=== PATIENT | female | born 1985 | race Caucasian/White ===

== ENCOUNTER 2024-08-27 14:35 | Emergency (ER) | payer MEDICAID, SELFPAY ==
--- OUTSIDE RECORDS SUMMARY | 2024-08-27 14:38 | XMS_ITS | Clinical Summary ---
Author Organization [facility] Address [address] [place] [address] Care Team Providers Care Orthodontist Assistant Name Role Phone None Reported, Pcp Primary Care Provider Unavail able Source Comments Patient records contain information from all sites at [facility]. For routine questions regarding patient records, call [phone] during business hours, M-F 8:00 AM - 5:00 PM Central Time. Record requests for emergency care only can be directed to [phone] at any time.[facility] Allergies No known active allergies Medications citalopram (CeleXA) 20 mg tablet Take 20 mg by mouth daily. Active Viorele, 28, 0.15-0.02 mgx21 /0.01 mg x 5 tablet Take 1 tablet by mouth daily. 2023 Active azithromycin (ZITHROMAX) 250 mg tabletIndicatio ns:Cough Subacute Take 2 tablets (500 mg) by mouth on day one then take 1 tablet (250 mg) by mouth on days 2 - 5. 6 tablet 03/15/2023 Active benzonatate (TESSALON) 200 mg capsuleIndicati ons:Cough Subacute Take 1 capsule (200 mg total) by mouth 3 (three) times a day as needed for cough. 20 capsule 03/15/2023 Active predniSONE (DELTASONE) 20 mg tabletIndicatio ns:Cough Subacute Take 2 tablets (40 mg total) by mouth daily. 10 tablet 03/15/2023 Active SUMAtriptan (IMITREX) 50 mg tablet Take 1 tablet (50 mg total) by mouth as needed for migraine. May repeat dose once in 2 hours if migraine is unresolved. Do not exceed 200 mg in 24 hours. 9 tablet 1 11/08/2023 Active Active Problems No known active problems Social History Tobacco Use Types Packs/Day Years Used Date Smoking Tobacco: Never Smokeless Tobacco: Never Tobacco Cessation:Counseling Given: Not Answered Alcohol Use Standard Drinks/Week Comments Yes 0 (1 standard drink = 0.6 oz pur e alcohol) Nutrition Answer Date Recorded Nutrition: EVOO Fat Source 13 02/25 Nutrition: Servings of Fruits/Vegetables per Day Not on file 02/26/2020 Dental Answer Date Recorded Dental: Regular Dentist Unknown 09/13/19 21 Comments Unknown Sex and Gender Information Value Date Recorded Sex Assigned at Not on file Legal Sex Female 11:10 AM CDT Gender Identity Not on file Sexual Orientation Not on file Last Filed Vital Signs Vital Sign Reading Time Taken Comments Blood Pressure 132/95 11/08/2023 8:24 AM CDT Pulse 59 11/08/2023 8:24 AM CDT Temperature 36 C (96.8 F) 11/08/2023 5:45 AM CDT Respiratory Rate 20 11/08/2023 7:45 AM CDT Oxygen Saturation 97% 11/08/2023 8:24 AM CDT Inhaled Oxygen Concentration - - Weight 67.4 kg (148 lb 11.2 oz) 11/08/2023 5:47 AM CDT Height 172.7 cm (5' 8) 02/29/2020 5:14 PM CDT Body Mass Index 22.61 02/29/2020 5:14 PM CDT Plan of Treatment Health Maintenance Due Date Last Done Comments HIV Screening 1984 Hepatitis C Screening 1984 Hepatitis B Vaccines (3 of 3 - 3-dose series) 08/02/1995 06/07/1995, 12/23/1994 Mammogram 10/01/2023 09/30/2022 COVID-19 Vaccine ( season) 2024 Influenza Vaccine (#1) 2024 04/01/2016 Depression Screening (Annual PHQ-2) 07/05/2024 Cervical/Vaginal Cancer Screening 09/27/2026 09/28/2023 Lipid (Cholesterol) Screening 10/14/2027 10/13/2022 DTaP,Tdap,and Td Vaccines (5 - Td or Tdap) 04/14/2029 04/14/2019, 10/03/2010, 05/28/2009, Additional history exists HPV Vaccines Aged Out No longer eligi ble based on patient's age to complete this topic IPV Vaccines Aged Out No longer eligi ble based on patient's age to complete this topic Pneumococcal vaccine (0-49 years) Aged Out No longer eligible based on patient's age to complete this topic Insurance [facility] Care Teams Orthodontist Assistant Relationship Specialty Start Date End Date None Reported, Pcp PCP - General Family Medicine 11/08/23
--- OUTSIDE RECORDS SUMMARY | 2024-08-27 14:38 | XMS_ITS | Clinical Summary ---
Author Organization [facility] Address [address] [place] [id number] Care Team Providers Care Extrusion Utility Worker Name Role Phone Pcp, No Primary Care Provider Unavailabl e Allergies No known active allergies Medications Viorele, 28, tablet Take 1 Tablet by mouth once daily. 2023 Active Active Problems No known active problems Immunizations Name Administration Dates Next Due DT (Age < 7 years) 10/19/1995 Hepatitis B (Peds) 06/07/1995,12/23/1994 Influenza, IIV4 04/01/2016 Tdap 04/14/2019,10/03/2010,05/28/2009 Social History Tobacco Use Types Packs/Day Years Used Date Smoking Tobacco: Never Smokeless Tobacco: Never Alcohol Use Standard Drinks/Week Comments Yes 0 (1 standard drink = 0.6 oz pur e alcohol) 4-6 weekly PHQ-2 Answer Date Recorded PHQ-2 TOTAL SCORE 2 01/25/2023 Comments No Sex and Gender Information Value Date Recorded Sex Assigned at Not on file Legal Sex Female 7:17 AM 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 Gender Identity Not on file Sexual Orientation Not on file Obstetrics History Para Term AB IAB SAB Ectopic Multiple Livin g Live Births 1 Date Outcome GA Total Labor Labor/2nd/3rd Weight Sex Type Anes PTL Debra A1 A5 Name Clin Last Filed Vital Signs Vital Sign Reading Time Taken Comments Blood Pressure 119/80 07/27/2023 8:01 AM [employer]DICTION 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 Pulse 81 07/27/2023 8:01 AM ADDICTION 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 Temperature 36.6 C (97.8 F) 06/25/2011 8:44 AM [employer]DICTION 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 Respiratory Rate 18 04/22/2007 4:51 PM CDT Oxygen Saturation 99% 07/27/2023 8:01 AM [employer]DICTION 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 Inhaled Oxygen Concentration - - Weight 71.2 kg (157 lb) 07/27/2023 8:01 AM ADDICTION 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 Height 172.8 cm (5' 8.03) 01/25/2023 1:42 PM CD T Body Mass Index 23.85 01/25/2023 1:42 PM CDT Plan of Treatment Health Maintenance Due Date Last Done Comments HIV for age 15-65 01/10/1999 Hepatitis C screening for ag e 18-79 01/10/2002 Pap test for age 21-65 01/10/2005 BMI (ht and wt on same day) for age 18+ 01/26/2024 01/25/2023 Depression screening for age 12+ 01/26/2024 01/25/2023 COVID-19 vaccine series ( season) 2024 Influenza for age 9-49 03/05/2024 04/01/2016 Tetanus booster 04/14/2029 04/14/2019, 10/03/2010, 05/28/2009 Tdap Completed 04/14/2019, 10/03/2010, 05/28/2009 Pneumococcal series for age 6-49 Aged Out No longer eligible b ased on patient's age to complete this topic Insurance [facility] Advance Directives * Full Code (Latest Code Status on File) Date Activated Date Inactivated Comments 02/21/2006 2:07 PM 02/23/2006 2:20 PM * Full Code Date Activated Date Inactivated Comments 02/21/2006 9:00 AM 02/21/2006 2:07 PM Care Teams Extrusion Utility Worker Relationship Specialty Start Date End Date Pcp, No . PCP - General 08/31/12
--- OUTSIDE RECORDS SUMMARY | 2024-08-27 14:38 | XMS_ITS | Data Portability ---
Author Organization [facility] [employer], [id number] Address [address] [place] [address] Assessment No assessment recorded. Plan of Treatment Reminders Order Date Submit Date Provider Last Modified By Organization Details Last Modified Time Details Appointments None recorded. Lab TSH, serum or plasma 2023 [facility], [address] , [address], [place], [address], 4 12:46:29 CMP, serum or plasma 2023 [facility], [address], [address], [place], [address], 4 12:46:28 CBC w/ diff 2023 [facility], [address], [address], [place], [address], 4 12:46:22 ferritin, serum or plasma 2023 [facility], [address], [address], [place], [address], 4 12:46:29 transferrin , serum 2023 [facility], [address], [address], [place], [address], 4 12:46:30 iron + total iron-bindin g capacity (TIBC), serum 2023 024 [facility], [address] [facility] [address], [address], [place], [address], 4 12:46:31 testosteron e, free + total, w/ shbg, serum [email or web address], [address], [address], [place], [address], 4 15:15:54 Pap test, slide(s), cervical 2023 024 [facility], [address], [address], [place], [address], 4 08:03:34 pap, LB 2019 [facility], [address] [place], [address], 1 11:31:22 HPV DNA, high-risk 2019 020 [facility], [address] [place], [address], 1 11:31:20 Referral None recorded. Procedures None recorded. Surgeries None recorded. Imaging None recorded. Medication Orders Viorele (28) 0.15 mg-0.02 mg (21)/0.01 mg (5) tablet 2023 024 [place] [facility], [address] [place], [place], [id number], 4 17:08:30 Viorele (28) 0.15 mg-0.02 mg (21)/0.01 mg (5) tablet 2022 023 [place] [facility], [address] [place], [id number], 3 16:57:01 citalopram 20 mg tablet 2022 023 [email or web address] 4 [facility], [address], [place], [id number], 4 16:44:21 Kariva (28) 0.15 mg-0.02 mg (21)/0.01 mg (5) tablet 2021 [facility], [address], [place], [id number], 2 11:01:33 citalopram 20 mg tablet 2021 022 [email or web address] 4 [facility] #[facility]59, [address], [place], [id number], 4 16:44:21 Kariva (28) 0.15 mg-0.02 mg (21)/0.01 mg (5) tablet 2019 020 [id number], [address] [place], [address], 1 08:21:48 citalopram 20 mg tablet 2019 020 [email or web address] 4 [id number], [address] [place], [address], 4 16:44:21 Patient TargetsNo targets recorded. Patient Instructions Encounter Date Encounter Id Patient Instructions Last Modified By Organization Details Last Modified Time 09/28/2023 [id number] - Encouraged breast self-awareness and monthly breast exams. - Calcium and vitamin D intake discussed. - Counseling on use of estrogen containing contraceptives provided, including the 07/999 risk of DVT or stroke. This risk may be higher in smokers. - Discussed appropriate breast cancer screening and mammogram intervals. - Recommended colonoscopy age 45. [email or web address] Not available 09/28/2023 17:40:41 06/12/2024 [id number] Discussed sympto ms of possible low blood sugars. Discussed frequent small meals/snacks and protein intake. [email or web address] Not available 06/13/2024 17:50:46 Reason for Referral None Reported. Results Created Date Observation Date Name Description Value Unit Range Abnormal Flag Note LastModifiedBy Organization Detail LastModifiedTime 07/02/20 20 07/02/2020 HPV DNA, high- risk HPV high risk type 16 Negati ve for HPV type 16. negati ve for HPV type 16. Not Available [facility] [address] [place], [address], 07/10/2020 11:31:20 07/02/20 20 07/02/2020 HPV DNA, high- risk HPV high risk type 18 Negati ve for HPV type 18. negati ve for HPV type 18. Not Available [facility] [address] [place], [address], 07/10/2020 11:31:20 07/02/20 20 07/02/2020 HPV DNA, high- risk HPV other high risk types Negati ve for other high risk HPV types. negati ve for other high risk HPV types. HPV other high risk types inclu de 31, 33, 35, 39, 45, 51, 52, 56, 58, 59, 66, and 68. Not Available [facility] [address] [place], [address], 07/10/2020 11:31:20 07/02/20 20 07/02/2020 pap, LB case report See note CASE REPOR T ----- ----- ----- ----- ----- ----- ----- ----- Pap Smear Case: [id number] Autho paul delacruz Provi livia: Queenie Paniagua MD Colle cted: 07/02 03:48 PM Order ing Locat ion: [facility] [place] Jamar daniels Recei opal: 07/03 09:10 AM [facility] First Scree n: Yane Oneill Speci men: Cervi frank Thin Prep with HPV Test Image r Scree florentin, Cervi x ===== ===== ===== ==== = INTER PRETA TION: = ===== ===== ===== ==== Negat sadaf for intra epith elial lesio n or shira nandarshan cells . Elect opal grady d by Yane Oneill on at 10:30 AM SPECI MEN ADEQU ACY ----- ----- ----- ----- ----- ----- ----- ----- Satis facto ry for evalu ation . Endoc erkiran al/tr ansfo rmati on zone compo nent absen t. CLINI FRANK INFOR MATIO N ----- ----- ----- ----- ----- ----- ----- ----- Regul ar LMP ----- ----- ----- ----- ----- ----- ----- ----- 06-18 PAP DISCL AIMER ----- ----- ----- ----- ----- ----- ----- ----- This speci men was scree skip by the ThinP rep Imagi ng Syste m prior to kathie barker w by a cytot echno logis t and/o r patho logis t. The Pap test is a scree florentin test and has an irred ucibl e false -nega tive rate. Routi ne perio dic testi ng and follo w-up of unexp abhi d clini frank signs and sympt oms are impor tant to minim ize the conse quenc e of false -nega tive Pap tests . Anya galindo et al. 2012 Updat ed Conse nsus Guide lines for the Manag ement of Abnor mal Cervi frank Canhu r Scree florentin Tests and Dangelo antoine Precu rsors . J Low Genit Tract Dis 2013; 17 (5): S2-S2 7 Not Available [facility] [address] [place], [address], 07/10/2020 11:31:22 10/14/19 23 10/13/2022 LIPID PANEL cholesterol 239 mg/dL <200 high Not Available [address], [place], [address], 10/13/2022 20:51:10 10/14/19 23 10/13/2022 LIPID PANEL triglyceride s 144 mg/dL <150 Not Available [address], [place], [address], 10/13/2022 20:51:10 10/14/19 23 10/13/2022 LIPID PANEL direct measure HDL 100 mg/dL >=50 Not Available [address], [place], [address], 10/13/2022 20:51:10 10/14/19 23 10/13/2022 LIPID PANEL LDL cholesterol calculated 110 mg/dL <=100 high Not Available [address], [place], [address], 10/13/2022 20:51:10 10/14/19 23 10/13/2022 LIPID PANEL non HDL cholesterol 139 mg/dL <130 high Aracely stero l Amanuel able: <200 mg/dL Trigl yceri angely Dorothy l: Less than 150 mg/dL Borde rline High: 150-1 99 mg/dL High: 200-4 99 mg/dL Very High: Great er than or equal to 500 mg/dL Direc t Measu re HDL Femal e: Great er than or equal to 50 mg/dL Male: Great er than or equal to 40 mg/dL LDL Aracely stero l Amanuel able: <100m g/dL Above Amanuel able: 100-1 29 mg/dL Borde rline High: 130-1 59 mg/dL High: 160-1 89 mg/dL Very High: >= 190 mg/dL Non HDL Aracely stero l Amanuel able: 130 mg/dL Above Amanuel able: 130-1 59 mg/dL Borde rline High: 160-1 89 mg/dL High: 190-2 19 mg/dL Very High: Great er than or equal to 220 mg/dL Not Available [address], [place], [address], 10/13/2022 20:51:10 10/14/19 23 10/13/2022 GLUCO SE SERUM OR PLASM A glucose 91 mg/dL 70-99 Not Available [address], [place], [address], 10/13/2022 20:51:11 10/14/19 23 10/13/2022 GLUCO SE SERUM OR PLASM A patient fasting > 8hrs? Yes Not Available [address], [place], [address], 10/13/2022 20:51:11 10/14/19 23 10/13/2022 TSH WITH REFLE X TO FREE T4 TSH 3.39 uIU/m L 0.30-4 .20 Not Available [address], [place], [address], 10/13/2022 20:51:12 10/14/19 23 10/13/2022 HEMOG LOBIN A1C hemoglobin A1C 5.4 % <5.7 Dorothy l <5.7% Predi abete s 5.7-6 .4% Diabe matthew 6.5% or highe r Note: Adopt ed from ADA conse nsus guide lines . Not Available [address], [place], [address], 10/13/2022 20:51:14 09/28/19 24 09/28/2023 HPV HIGH RISK TYPES DNA CERVI FRANK other HR HPV Negati ve negati ve Not Available [address], [place], [address], 10/04/2023 08:03:23 09/28/19 24 09/28/2023 HPV HIGH RISK TYPES DNA CERVI FRANK HPV16 DNA Negati ve negati ve Not Available [address], [place], [address], 10/04/2023 08:03:23 09/28/19 24 09/28/2023 HPV HIGH RISK TYPES DNA CERVI FRANK HPV18 DNA Negati ve negati ve Not Available [address], [place], [address], 10/04/2023 08:03:23 09/28/19 24 09/28/2023 HPV HIGH RISK TYPES DNA CERVI FRANK final diagnosis See note below This patie nt's sampl e is negat sadaf for HPV DNA. This test was devel oped and its perfo rmanc e alexandra cteri stics deter mined by the [facility] Diagn ostic s Labor atory . It has not been clear ed or appro opal by the FDA. The labor atory is regul ated under CLIA as quali fied to perfo rm high- compl exity testi ng. This test is used for clini frank purpo ses. It shoul d not be regar ded as inves tigat ional or for resea rch. METHO DOLOG Y: The Michelle Tacos 4800 syste m uses autom ated extra ction , simul taneo us ampli ficat ion of HPV (L1 regio n) and beta- globi n, follo wed by real time detec tion of fluor escen t label ed HPV and beta globi n using speci fic oligo nucle otide probe s. The test speci fical ly ident ifies types HPV 16 DNA and HPV 18 DNA while concu rrent ly detec ting the rest of the high risk types (31, 33, 35, 39, 45, 51, 52, 56, 58, 59, 66 or 68). COMME NTS: This test is not inten ded for use as a scree florentin devic e for woman under age 30 with dorothy l cervi frank cytol ogy. Resul chris cerda d be corre lated with cytol ogic and histo logic findi ngs. Close clini frank follo wup is recom suma d. 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 Pap tests are prima rily effec tive for the diagn osis/ preve ntion of squam ous cell carci noma, not adeno carci noma or other cance rs. 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 ADEQU ACY: Satis facto ry for evalu ation , endoc ervic al/tr ansfo rmati on zone compo nent absen t Path repor t.rel evant Hx Spec: none BKR LAB AP LMP: 09-13 BKR LAB AP HPV REFLE X: Yes regar dless of resul t BKR LAB AP PREVI OUS ABNOR MAL: Yes BKR LAB AP PREVI OUS ABNL DX: 07-02 Neg/N eg HPV-n o ECC Path repor [email or web address] ments Imp Spec: The techn ical compo nent of this testi ng was compl eted at [facility] [facility] Not Available [address], [place], [address], 10/04/2023 08:03:34 06/12/20 24 06/12/2024 CBC WITH PLATE LETS WBC count 7.5 10e3/ uL 4.0-11 .0 Not Available [address], [place], [address], 06/16/2024 12:46:21 06/12/20 24 06/12/2024 CBC WITH PLATE LETS RBC count 5.02 10e6/ uL 3.80-5 .20 Not Available [address], [place], [address], 06/16/2024 12:46:21 06/12/20 24 06/12/2024 CBC WITH PLATE LETS hemoglobin 13.7 g/dL 11.7-1 5.7 Not Available [address], [place], [address], 06/16/2024 12:46:21 06/12/20 24 06/12/2024 CBC WITH PLATE LETS hematocrit 43.7 % 35.0-4 7.0 Not Available [address], [place], [address], 06/16/2024 12:46:21 06/12/20 24 06/12/2024 CBC WITH PLATE LETS MCV 87 fL 78-100 Not Available [address], [place], [address], 06/16/2024 12:46:21 06/12/20 24 06/12/2024 CBC WITH PLATE LETS MCH 27.3 pg 26.5-3 3.0 Not Available [address], [place], [address], 06/16/2024 12:46:21 06/12/20 24 06/12/2024 CBC WITH PLATE LETS MCHC 31.4 g/dL 31.5-[address] [facility] [address], [place], [address], 06/16/2024 12:46:21 06/12/20 24 06/12/2024 CBC WITH PLATE LETS RDW 13.2 % 10.0-1 5.0 Not Available [address], [place], [address], 06/16/2024 12:46:21 06/12/20 24 06/12/2024 CBC WITH PLATE LETS platelet count 310 10e3/ uL 150-45 0 Not Available [address], [place], [address], 06/16/2024 12:46:21 06/12/20 24 06/12/2024 CBC WITH PLATE LETS % neutrophils 58 % Not Available [address], [place], [address], 06/16/2024 12:46:21 06/12/20 24 06/12/2024 CBC WITH PLATE LETS % lymphocytes 34 % Not Available [address], [place], [address], 06/16/2024 12:46:21 06/12/20 24 06/12/2024 CBC WITH PLATE LETS % monocytes 6 % Not Available [facility] [address] [facility] [address], [place], [address], 06/16/2024 12:46:21 06/12/20 24 06/12/2024 CBC WITH PLATE LETS % eosinophils 1 % Not Available [facility] [address] [facility] [address], [place], [address], 06/16/2024 12:46:21 12/09/20 24 06/12/2024 CBC WITH PLATE LETS % basophils 1 % Not Available [address], [place], [address], 06/16/2024 12:46:21 06/12/20 24 06/12/2024 CBC WITH PLATE LETS % immature granulocytes 0 % Not Available [address], [place], [address], 06/16/2024 12:46:21 06/12/20 24 06/12/2024 CBC WITH PLATE LETS NRBCs per 100 WBC 0 /100 <1 Not Available [address], [place], [address], 06/16/2024 12:46:21 06/12/20 24 06/12/2024 CBC WITH PLATE LETS absolute neutrophils 4.3 10e3/ uL 1.6-8. 3 Not Available [address], [place], [address], 06/16/2024 12:46:21 06/12/20 24 06/12/2024 CBC WITH PLATE LETS absolute lymphocytes 2.6 10e3/ uL 0.8-5. 3 Not Available [address], [place], [address], 06/16/2024 12:46:21 06/12/20 24 06/12/2024 CBC WITH PLATE LETS absolute monocytes 0.5 10e3/ uL 0.0-1. 3 Not Available [address], [place], [address], 06/16/2024 12:46:21 06/12/20 24 06/12/2024 CBC WITH PLATE LETS absolute eosinophils 0.1 10e3/ uL 0.0-0. 7 Not Available [address], [place], [address], 06/16/2024 12:46:21 06/12/20 24 06/12/2024 CBC WITH PLATE LETS absolute basophils 0.0 10e3/ uL 0.0-0. 2 Not Available [address], [place], [address], 06/16/2024 12:46:21 06/12/20 24 06/12/2024 CBC WITH PLATE LETS absolute immature granulocytes 0.0 10e3/ uL <=0.4 Not Available [address], [place], [address], 06/16/2024 12:46:21 06/12/20 24 06/12/2024 CBC WITH PLATE LETS absolute NRBCs 0.0 10e3/ uL Not Available [address], [place], [address], 06/16/2024 12:46:21 06/12/20 24 06/12/2024 TESTO STERO NE FREE AND TOTAL free testosterone calculated 0.08 NG/dL Adult Femal e Refer ence Range : 18-30 Years : 0.08- 0.74 ng/dL 31-40 Years : 0.13- 0.92 ng/dL 41-51 Years : 0.11- 0.58 ng/dL Postm enopa usal: 0.06- 0.38 ng/dL Not Available [address], [place], [address], 06/16/2024 12:46:23 06/12/20 24 06/12/2024 TESTO STERO NE FREE AND TOTAL testosterone total 21 NG/dL 8-60 This test was devel oped and its perfo rmanc e alexandra cteri stics deter mined by the [facility], Speci al Chemi stry Labor atory . It has not been clear ed or appro opal by the FDA. The labor atory is regul ated under CLIA as quali fied to perfo rm high- compl exity testi ng. This test is used for clini frank purpo ses. It shoul d not be regar ded as inves tigat ional or for resea [facility]. Not Available [address], [place], [address], 06/16/2024 12:46:23 06/12/20 24 06/12/2024 COMPR EHENS SADAF METAB OLIC PANEL sodium 140 mmol/ L 135-14 5 Not Available [address], [place], [address], 06/16/2024 12:46:28 06/12/20 24 06/12/2024 COMPR EHENS SADAF METAB OLIC PANEL potassium 4.5 mmol/ L 3.4-5. 3 Not Available [address], [place], [address], 06/16/2024 12:46:28 06/12/20 24 06/12/2024 COMPR EHENS SADAF METAB OLIC PANEL carbon dioxide (co2) 23 mmol/ L 22-29 Not Available [address], [place], [address], 06/16/2024 12:46:28 06/12/20 24 06/12/2024 COMPR EHENS SADAF METAB OLIC PANEL anion gap 13 mmol/ L 7-15 Not Available [address], [place], [address], 06/16/2024 12:46:28 06/12/20 24 06/12/2024 COMPR EHENS SADAF METAB OLIC PANEL urea nitrogen 10.2 mg/dL 6.0-20 .0 Not Available [address], [place], [address], 06/16/2024 12:46:28 06/12/20 24 06/12/2024 COMPR EHENS SADAF METAB OLIC PANEL creatinine 0.84 mg/dL 0.51-0 .95 Not Available [address], [place], [address], 06/16/2024 12:46:28 06/12/20 24 06/12/2024 COMPR EHENS SADAF METAB OLIC PANEL GFR estimate 90 mL/mi n/1.7 3m2 >60 eGFR calcu lated using 2020 CKD-E PI equat ion. Not Available [address], [place], [address], 06/16/2024 12:46:28 06/12/20 24 06/12/2024 COMPR EHENS SADAF METAB OLIC PANEL calcium 9.8 mg/dL 8.8-10 .4 Refer ence inter vals for this test were updat ed on [address] healt hy popul ation more accur ately . There may be diffe rence s in the lindsey ing of prior resul ts with simil ar value s perfo rmed with this metho d. Those prior resul ts can be inter prete d in the zora xt of the updat ed refer ence inter vals. Not Available [address], [place], [address], 06/16/2024 12:46:28 06/12/20 24 06/12/2024 COMPR EHENS SADAF METAB OLIC PANEL chloride 104 mmol/ L 98-107 Not Available [address], [place], [address], 06/16/2024 12:46:28 06/12/20 24 06/12/2024 COMPR EHENS SADAF METAB OLIC PANEL glucose 113 mg/dL 70-99 high Not Available [address], [place], [address], 06/16/2024 12:46:28 06/12/20 24 06/12/2024 COMPR EHENS SADAF METAB OLIC PANEL alkaline phosphatase 62 U/L 40-150 Not Available [address], [place], [address], 06/16/2024 12:46:28 06/12/20 24 06/12/2024 COMPR EHENS SADAF METAB OLIC PANEL AST 22 U/L 0-45 Not Available [address], [place], [address], 06/16/2024 12:46:28 06/12/20 24 06/12/2024 COMPR EHENS SADAF METAB OLIC PANEL ALT 17 U/L 0-50 Not Available [address], [place], [address], 06/16/2024 12:46:28 06/12/20 24 06/12/2024 COMPR EHENS SADAF METAB OLIC PANEL protein total 7.5 g/dL 6.4-8. 3 Not Available [address], [place], [address], 06/16/2024 12:46:28 06/12/20 24 06/12/2024 COMPR EHENS SADAF METAB OLIC PANEL albumin 4.3 g/dL 3.5-5. 2 Not Available [address], [place], [address], 06/16/2024 12:46:28 06/12/20 24 06/12/2024 COMPR EHENS SADAF METAB OLIC PANEL bilirubin total 0.3 mg/dL <=1.2 Not Available [address], [place], [address], 06/16/2024 12:46:28 06/12/20 24 06/12/2024 TOMY TIN ferritin 19 NG/mL 6-175 Not Available [address], [place], [address], 06/16/2024 12:46:29 06/12/20 24 06/12/2024 TSH WITH REFLE X TO FREE T4 TSH 1.83 uIU/m L 0.30-4 .20 Not Available [address], [place], [address], 06/16/2024 12:46:29 06/12/20 24 06/12/2024 TRANS TOMY N LEVEL transferrin 379.0 mg/dL 200.0- 360.0 high Not Available [address], [place], [address], 06/16/2024 12:46:30 06/12/20 24 06/12/2024 IRON AND IRON HEATHER NG CAPAC ITY iron 90 ug/dL 37-145 Not Available [address], [place], [address], 06/16/2024 12:46:30 06/12/20 24 06/12/2024 IRON AND IRON HEATHER NG CAPAC ITY iron binding capacity 448 ug/dL 240-43 0 high Not Available [address], [place], [address], 06/16/2024 12:46:30 06/12/20 24 06/12/2024 IRON AND IRON HEATHER NG CAPAC ITY iron saturation index 20 % 15-46 Not Available [address], [place], [address], 06/16/2024 12:46:30 06/12/20 24 06/12/2024 SEX HORMO NE HEATHER NG GLOBU KACIE sex hormone binding globulin 228 nmol/ L 30-135 high Not Available [address], [place], [address], 06/16/2024 12:46:35 09/30/19 23 09/29/2022 US, lisa scanlon , limit ed No observ ation record ed. [email or web address] [facility] [address] [facility], [place], [address], 09/30/2022 09:06:48 10/01/1909/29/2022 MAMMO , diagn ostic , tomos ynthe sis, bilat eral No observ ation record ed. [email or web address] [place] [address] [address], [place], [address], 09/30/2022 09:08:57 Result Notes None recorded. Problems No Known Problems Procedures Surgical History Date Name Laterality Status Provider Name and Address Organization Details Recorded Time 09/28/19 Date of Last Pap Smear completed Hannah Vale MA - [facility] [employer] 10/04/2023 13:24:49 09/30/19 23 Date of Last Mammogram completed Sam Perez MA - [facility] [employer] 09/30/2022 09:06:14 03/25/20 14 Insert intrauterine device completed Not Available [facility] 02/12/2020 01:05:24 Remove intrauterine device completed Not Available [facility] 02/12/2020 01:05:24 dilation and curettage completed Not Available [facility] 02/12/2020 01:05:24 Imaging Results Imaging Date Name Status LastModified by Organiz ation Details LastModified Time 09/29/2022 US, breast, unilateral, limited completed [email or web address] [place] [address] [address], [place], [address], 09/30/2022 09:06:48 09/29/2022 MAMMO, diagnostic, tomosynthesis, bilateral completed [address], [place], [address], 09/30/2022 09:08:57 Procedure Notes None recorded. Medical Equipment None Reported. Allergies No known drug allergies Medications Name Sig Start Date Stop Date Status Note LastModified by Organization Details LastModified Time azithromyci n 250 mg tablet 09/27 completed Not Available Not Available Not Available benzonatate 200 mg capsule 09/27 completed Not Available Not Available Not Available prednisone 20 mg tablet 09/27 completed Not Available Not Available Not Available citalopram 20 mg tablet TAKE 1 TABLET DAILY 09/27 completed Not Available Not Available Not Available oseltamivir 75 mg capsule TAKE 1 CAPSULE BY MOUTH TWICE DAILY FOR 5 DAYS 06/12 completed Not Available Not Available Not Available hydroxyzine HCl 25 mg tablet TAKE 1 TABLET (25 MG) BY MOUTH EVERY 6 HOURS IF NEEDED FOR ITCHING. 09/27 completed Not Available Not Available Not Available ondansetron 4 mg disintegrat ing tablet DISSOLVE 1 TABLET IN THE MOUTH EVERY 8 HOURS NEEDED FOR NAUSEA OR VOMITING FOR UP TO 10 DAYS 06/12 completed Not Available Not Available Not Available amoxicillin 875 mg-potassiu m clavulanate 125 mg tablet TAKE 1 TABLET BY MOUTH 2 (TWO) TIMES A DAY FOR 7 DAYS. 08/12 completed Not Available Not Available Not Available Viorele (28) 0.15 mg-0.02 mg (21)/0.01 mg (5) tablet TAKE ONE TABLET BY MOUTH EVERY DAY active Not Available Not Available No t Available ID NOW COVID-19 Test Kit DIRECTED 10/13 completed Not Available Not Available Not Available Vitals Date Recorded Body height Body mass index (BMI) Body weight Systolic blood pressure Diastolic blood pressure Provider Name and Address Organization Details Last Updated DateTime 08/12/2021 172.72 cm 25.1 kg/m2 79124.02 g 112 mm[Hg] 76 mm[Hg] Sean Esteves (TERMED) [facility] [employer] 2 10:39:38 Date Recorded Body weight Body mass index (BMI) Body height Systolic blood pressure Diastolic blood pressure Provider Name and Address Organization Details Last Updated DateTime 09/22/2022 16775.3 g 26 kg/m2 172.72 cm 115 mm[Hg] 70 mm[Hg] Kasandra Matos (TERMED) [facility] [employer] 3 16:23:25 Date Recorded Body weight Body mass index (BMI) Body height Systolic blood pressure Diastolic blood pressure Provider Name and Address Organization Details Last Updated DateTime 09/28/2023 64393.04 g 23.1 kg/m2 172.72 cm 120 mm[Hg] 77 mm[Hg] Toshia Beth [facility] [employer] 4 16:49:18 Date Recorded Body height Body mass index (BMI) Body weight Systolic blood pressure Diastolic blood pressure Provider Name and Address Organization Details Last Updated DateTime 06/12/2024 172.72 cm 23.5 kg/m2 35881.1 g 115 mm[Hg] 80 mm[Hg] Paresh Wright [facility] [employer] 4 10:18:52 Date Recorded Body weight Body mass index (BMI) Body height Systolic blood pressure Diastolic blood pressure Provider Name and Address Organization Details Last Updated DateTime 07/02/2020 68555.34 g 24.3 kg/m2 172.72 cm 110 mm[Hg] 75 mm[Hg] Josefina Serrano (TERMED) [facility] [employer] 0 14:55:27 Social History Question Answer Notes LastModified by Organizat ion Details LastModified Time Tobacco Smoking Status Never Smoker Valencia rosenberg [facility] [employer] 09/23/2020 08:20:50 What Is Your Level Of Alcohol Consumption? None Former *Qty: 2dr/wk Information not available 09/23/2020 What Is Your Level Of Caffeine Consumption? Moderate 1-2c/day Information not available 09/22/2022 Which Illicit Or Recreational Drugs Have You Used? 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 Occasional Minimal Amount of Exercise (Once weekly or less) Information not available 02/12/2020 Mental Status None recorded. Family History Relationship Description Onset Age of this Age Resolved Age Notes LastModified by Organization Details LastModified Time Maternal Grandmother Hyperlipidem ia High Choles terol / Hyperl ipidem ia Not available 02/12/2020 01:06:29 Maternal Grandmother Family history of diabetes mellitus Diabet es Not available 02/12/2020 01:06:29 Maternal Grandmother Benign neoplasm of colon Colon Polyp, Benign Not available 02/12/2020 01:06:29 Maternal Grandmother Family history of breast cancer Cancer Breast Not available 02/12/2020 01:06:29 Medical History Condition Response Psych- Anxiety Disorder Y Gynecological History Statement/Question Response History of Abnormal PAP Y Date of Last Pap Smear 09/28/2023 Date of Last Mammogram 09/29/2022 Date of LMP 09/14/2023 Obstetrics History GPAL:G 7 P 3 0 3 3 Type Value Multiple Births 0 Full Term 3 Induced 0 Spontaneous 3 Premature 0 Living 3 Ectopics 0 Total 7 Immunizations Vaccine Type Date Status Note Provider Nam e and Address Organization Details Recorded Time unknown 03/14/2010 completed Kasandra Matos (TERMED) [place], [place] [facility] [employer] 09/22/2022 16:21:15 DT (pediatric) 10/19/1995 completed Kasandra Matos (TERMED[place], [place] [facility] [employer] 09/22/2022 16:21:15 Tdap 04/14/2019 completed Kasandra Matos (TERMED[place] [facility] [employer] 09/22/2022 16:21:15 Hep B, adolescent or pediatric 12/23/1994 completed Kasandra Matos (TERMED[place], [place] [facility] [employer] 09/22/2022 16:21:15 Hep B, adolescent or pediatric 06/07/1995 completed Kasandra Matos (TERMED[place], [place] [facility] [employer] 09/22/2022 16:21:15 Influenza, split virus, quadrivalent, PF 04/01/2016 completed Kasandra Matos (TERMED[place], [place] [facility] [employer] 09/22/2022 16:21:15 Past Encounters Encounter ID Performer Location Encounter Start Date Encounter Closed Date Diagnosis/Indication Diagnosis SNOMED-CT Code Diagnosis ICD10 Code Diagnosis Note [id number] CHANI HALL MD [id number] [facility]_[address] [place] ,[address] [place] [address] 07/02/2020 14:45:09 07/02/2020 15:52:48 Gynecologic examination 65029407 Z01.419 - Encouraged breast self-aware ness and monthly breast exams. - Calcium and vitamin D intake discussed. - Patient will return to clinic for fasting labs. - Counseling on use of estrogen containing contracept jeri provided, including the 07/999 risk of DVT or stroke. This risk may be higher in smokers. - Discussed appropriat e breast cancer screening and mammogram intervals. - Mood symptoms discussed- resources offered and phone numbers given to patient for counseling services/p chance chan, precaution s regarding depressed mood also discussed and patient is aware of emergency resources. Anxiety 64617682 F41.9 - Discussed increasing dose of citalopram to 30 mg. Pt agrees. Call if side effects or ineffectiv e dosage increase. [id number] CHANI HALL MD [id number] ,[place] [address] [place] [address] 08/12/2021 10:18:40 08/12/2021 11:09:22 Gynecologic examination 88081744 Z01.419 - Encouraged breast self-aware ness and monthly breast exams. - Calcium and vitamin D intake discussed. - Patient will return to clinic for fasting labs. - Counseling on use of estrogen containing contracept jeri provided, including the 07/999 risk of DVT or stroke. This risk may be higher in smokers. - Discussed appropriat e breast cancer screening and mammogram intervals. - Mood symptoms discussed- resources offered and phone numbers given to patient for counseling services/p chance chan, precaution s regarding depressed mood also discussed and patient is aware of emergency resources. - Declines flu shot. - Call if LLQ pain persists x 1-2 more weeks, would recommend US if that were the case. Anxiety 39823412 F41.9 - Recommend patient transition mental health care to psychiatry due to inadequate reponse to SSRI- Handout provided for therapists and psychiatri st - options given.- Continue citalopram 20 mg for now. [id number] CHANI HALL MD [id number] ,[facility] [address] [place] [id number] 09/22/2022 16:03:33 09/22/2022 17:13:20 Pain of left breast 7484152869 N64.4 - Ordered bilateral dx mammogram- Reassured normal exam Gynecologi c examination 96043707 Z01.419 - Encouraged breast self-aware ness and monthly breast exams. - Calcium and vitamin D intake discussed. - Patient will return to clinic for fasting screening labs (glucose, hemoglobin a1c, lipids, TSH reflex free T4). - Counseling on use of estrogen containing contracept jeri provided, including the 07/999 risk of DVT or stroke. This risk may be higher in smokers. - Discussed appropriat e breast cancer screening and mammogram intervals Anxiety 36367295 F41.9 - Continue citalopram 20 mg [id number] VALENTINA GOMEZ MD [id number] ,[address] [place] [address] 09/28/2023 16:34:08 09/28/2023 17:55:59 Gynecologic examination 95849391 Z01.419 Contracept ion care management 791776114 Z30.9 Discussed OCPs - this is working well for her and she would like to continue. [id number] VALENTINA GOMEZ MD [id number] ,[address] [place] [address] 06/12/2024 10:04:40 06/14/2024 09:34:16 Loss of hair 006224862 L65.9 Discussed hair loss and possible causes. Will do labs below. If normal, would recommend seeing derm. Acne 94219146 L70.9 Discussed increased acne. Already on OCPs. Will check testostero ne. Would also consider derm if normal. Contracept ion care management 824175508 Z30.9 Currently on OCPs and this is working fine but wondering about other options. Discussed options for control. Reviewed OCPs, nuvaring, patch, IUDs, nexplanon and depo-prove ra. Discussed bilateral salpingect steffanie and vasectomy. Discussed risks, benefits and what to expect with each. She will consider and continue OCPs for now. Left lower quadrant pain 286017460 R10.32 Discussed intermitte nt LLQ with h/o normal US in past and now seeming to be related to bowels. Recommend consult with [place] [facility]. Health Concerns Section Related Observation LastModified by Organization Detai ls LastModified Time None Recorded Concern Status LastModified by Organization Details LastModified Time None Recorded Advance Directives Directive None Recorded Payers Encounter Date Sequence Insurance Name Policy Number Policy Goode Covered Member ID Goode Member ID Guarantor Name 07/02/2020 1 [employer] - DOS PRIOR TO 2021 (MEDICAID REPLACEMENT - HMO) MEMTMA Madison R Ryane Alaina [id number] Madison R Alaina 08/12/2021 1 [employer] - DOS PRIOR TO 2023 (MEDICAID REPLACEMENT - HMO) [id number] Madison R Alaina [id number] Madison R Alaina 09/22/2022 1 [employer] - DOS PRIOR TO 2023 (MEDICAID REPLACEMENT - HMO) [id number] Madison R Alaina [id number] Madison R Alaina 09/28/2023 1 [employer] - [employer] - DOS ON OR AFTER 2023 (MEDICAID REPLACEMENT - HMO) [id number] Madison R Alaina [id number] Madison R Alaina 06/12/2024 1 [employer] - [employer] - DOS ON OR AFTER 2023 (MEDICAID REPLACEMENT - HMO) [id number] Madison R Alaina [id number] Madison R Alaina Notes Date Note Type Note Provider Name and Address Organization Details Recorded Time 07/02/2020 text/html Annual [facility])Reported bypatient.Patient Relationship To Practice:established patient Current Medical History:active medical problems stable Relevant Family History:no family history of breast cancer; no family history of ovarian cancer; no family history of uterine cancer; no family history of colon cancer; no family history of blood clots/DVT Menstrual History:Frequency of Menses: monthly; Duration of Flow: 4 days Contraceptive Method:Current Method Used: oral contraceptives; satisfied Sexually Active:Yes: same partner STI Screen:declines Health/Prevention:Ex ercise: yes; Multivitamins: no; Tobacco Use: no Mammogram:not applicable Pap Smear +/- HPV Cotesting:due Patient has:Primary Care Physician: no Past 6 months increased anxiety and hard time shutting it off to get to sleep. Takes her an hour to fall asleep, then wakes 2 am and it starts all over x an hour. Up at 6 am. On citalopram 20 mg x4 years. Takes in the evening as it has helped her fall asleep in the past, but not working as well anymore. Home automatic buffer w kids[place] [id number] [facility],[address], [place], [address], [place] [facility] [employer] 07/02/2020 16:13:29 08/12/2021 text/html Annual [facility] ([facility])Reported bypatient.Patient Relationship To Practice:established patient Current Medical History:active medical problems stable Relevant Family History:no family history of breast cancer; no family history of ovarian cancer; no family history of uterine cancer; no family history of colon cancer; no family history of blood clots/DVT Menstrual History:Frequency of Menses: monthly; Duration of Flow: 4 days Contraceptive Method:satisfied: oral contraceptives Sexually Active:Yes: spouse STI Screen:declines Health/Prevention:Ex ercise: yes; Multivitamins: no; Tobacco Use: no Mammogram:not applicable Pap Smear +/- HPV Cotesting:due Patient has:Primary Care Physician: no Increase in citalopram to 30 mg made her more sleepy but didn't help her sleep better at night. Now back on citalopram 20 mg and able to fall asleep but waking at 2 am and mind wanders and worries. Up for 3 hours and then falls back asleep for an hour and then exhausted. 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 Does that with her littlest. More responsibility due to staff being gone temporarily. Kids are 15 (hockey), 12 (BB), 10 yo [place](needing mental health support at [facility]); youngest horse riding. Past 6 months increased anxiety and hard time shutting it off to get to sleep. Takes her an hour to fall asleep, then wakes 2 am and it starts all over x an hour. Up at 6 am. On citalopram 20 mg x4 years. Takes in the evening as it has helped her fall asleep in the past, but not working as well anymore. Home automatic buffer w kids.Pt has had an ovarian cyst in the past. Currently feeling a dull pain. About 1.5 weeks ago had lapse in restarting pill and then excruciating pain on left side / sharp and through back to front. [place] [id number], [place], [address], [place] [facility] [employer] 08/12/2021 12:34:53 09/22/2022 text/html Annual [facility] ([facility])Reported bypatient.Patient Relationship To Practice:established patient Current Medical History:active medical problems stable Relevant Family History:no family history of breast cancer; no family history of ovarian cancer; no family history of uterine cancer; no family history of colon cancer; no family history of blood clots/DVT Menstrual History:Frequency of Menses: monthly; Duration of Flow: 4 days Contraceptive Method:satisfied: oral contraceptives Sexually Active:Yes: spouse STI Screen:declines Health/Prevention:Ex ercise: yes; Multivitamins: no; Tobacco Use: no Pap Smear +/- HPV Cotesting:up-to-date Patient has:Primary Care Physician: no Prior to last period (approx 6 weeks ago) noticed left breast pain at nipple extending laterally. Sharp, daily. Didn't improve at all with her period. Breast tissue might feel different but unclear if a lump? No nipple discharge. Citalopram 20 mg working well. OCPs working well. Riding horses regularly. Kids are 16 (hockey), 13 (BB), 11 yo [place](needing mental health support at [facility]); [place] [id number], [place], [address], [place] [facility] [employer] 09/22/2022 17:01:00 09/28/2023 text/html Annual [facility] us[facility] ([facility])Reported bypatient.Patient Relationship To Practice:established patient Current Medical History:no active medical problems Relevant Family History:no family history of breast cancer; no family history of ovarian cancer; no family history of uterine cancer; no family history of colon cancer; no family history of blood clots/DVT Menstrual History:Frequency of Menses: monthly; Duration of Flow: 4 days Contraceptive Method:satisfied: oral contraceptives Sexually Active:Yes: spouse Health/Prevention:Ex ercise: yes; Multivitamins: yes; Adequate Calcium Intake: yes; Tobacco Use: no Pap Smear +/- HPV Cotesting:due Thyroid/Lipid Screening:up-to-date Colonoscopy:not applicable Patient has:Primary Care Physician: [place] [id number] [facility],[address], [place], [address], [facility] [employer] 09/28/2023 17:41:03 06/12/2024 text/html Patient presents today with multiple concerns. 1. She reports losing hair for the last 6 months, worse in the last 3 months.2. She is getting more cystic acne around her mouth.3. She reports her grandmother has diabetes. She has always had times when it feels like her BS drops - she feels hot, has nausea and does not feel good. Eating something or drinking milk will make the symptoms better. This has been happening more often lately.4. She reports h/o pain on left lower quadrant years ago, intermittent. Had U/S which was normal in 2018 for this. This has also been worse in the last 6 months, but now she feels it is related to what she eats, as it is worse with different foods.5. She would like to discuss control options - considering [place] [id number] [facility],[address], [place], [address], [employer] 06/13/2024 17:51:08 OBGyn Episode Ob Episode Information Episode Created Date Number of Fetuses Patient Bloodtype Patient rh Status Prepregnancy Weight lbs Domestic Partner Domestic Partner Phone Father Name Applications Engineering Manager Status 07/02/20 20 1 CLOSED Fetus Data First Name Last Name Admitted to NICU Weight (g) Sex Living Outcome Pediatric Complications Fetus ID Race Codes Race Delivery Type , Spontane ous [id number] Meño Calculation Initial Meño Date Initial Exam Date Initial Exam Provider Initial Ultrasound Date Last Menstrual Period Date Ultra Sound Weeks Gestation 0 Eighteen To Twenty Week Meño Update Ultra Sound Date Fundal Height At Umbil Quickening Date Ultra Sound Latest Weeks Gestation Final Meño Confirmed By Final Meño Confirmed Date Final Meño Date Ultra Sound Latest Days Gestation 0 0 Menstrual History Last Menstrual Date Menses Monthly On Bcp Conception Prior Menses Frequency Hcg Plus Date Menarche Onset Age Delivery Information Delivery Date Delivery Type Labor Anesthesia Weeks Gestation Incision Type Labor Labor Length Hrs Delivered By Post Complications Tubal Sterilization Discharge Date Comments 7 9 suction D&C Discharge Information Feeding Method Contraceptive Method Maternal HG B and HCT Levels Ob Episode Information Episode Created Date Number of Fetuses Patient Bloodtype Patient rh Status Prepregnancy Weight lbs Domestic Partner Domestic Partner Phone Father Name Applications Engineering Manager Status 07/02/20 20 1 CLOSED Fetus Data First Name Last Name Admitted to NICU Weight (g) Sex Living Outcome Pediatric Complications Fetus ID Race Codes Race Delivery Type 3401.94 M Full Term [id number] Meño Calculation Initial Meño Date Initial Exam Date Initial Exam Provider Initial Ultrasound Date Last Menstrual Period Date Ultra Sound Weeks Gestation 0 Eighteen To Twenty Week Meño Update Ultra Sound Date Fundal Height At Umbil Quickening Date Ultra Sound Latest Weeks Gestation Final Meño Confirmed By Final Meño Confirmed Date Final Meño Date Ultra Sound Latest Days Gestation 0 0 Menstrual History Last Menstrual Date Menses Monthly On Bcp Conception Prior Menses Frequency Hcg Plus Date Menarche Onset Age Delivery Information Delivery Date Delivery Type Labor Anesthesia Weeks Gestation Incision Type Labor Labor Length Hrs Delivered By Post Complications Tubal Sterilization Discharge Date Comments 6 Regional-Ep idural 39 [place] Discharge Information Feeding Method Contraceptive Method Maternal HG B and HCT Levels Ob Episode Information Episode Created Date Number of Fetuses Patient Bloodtype Patient rh Status Prepregnancy Weight lbs Domestic Partner Domestic Partner Phone Father Name Applications Engineering Manager Status 07/02/20 20 1 CLOSED Fetus Data First Name Last Name Admitted to NICU Weight (g) Sex Living Outcome Pediatric Complications Fetus ID Race Codes Race Delivery Type 2296.08 2704 M Full Term 36056 Meño Calculation Initial Meño Date Initial Exam Date Initial Exam Provider Initial Ultrasound Date Last Menstrual Period Date Ultra Sound Weeks Gestation 0 Eighteen To Twenty Week Meño Update Ultra Sound Date Fundal Height At Umbil Quickening Date Ultra Sound Latest Weeks Gestation Final Meño Confirmed By Final Meño Confirmed Date Final Meño Date Ultra Sound Latest Days Gestation 0 0 Menstrual History Last Menstrual Date Menses Monthly On Bcp Conception Prior Menses Frequency Hcg Plus Date Menarche Onset Age Delivery Information Delivery Date Delivery Type Labor Anesthesia Weeks Gestation Incision Type Labor Labor Length Hrs Delivered By Post Complications Tubal Sterilization Discharge Date Comments 1 Regional-Ep idural 38 IOL for asymmetri c IUGR, Dr. Atkinson Discharge Information Feeding Method Contraceptive Method Maternal HG B and HCT Levels Ob Episode Information Episode Created Date Number of Fetuses Patient Bloodtype Patient rh Status Prepregnancy Weight lbs Domestic Partner Domestic Partner Phone Father Name Applications Engineering Manager Status 07/02/20 20 1 CLOSED Fetus Data First Name Last Name Admitted to NICU Weight (g) Sex Living Outcome Pediatric Complications Fetus ID Race Codes Race Delivery Type 3203.26 6704 M Full Term [id number] Meño Calculation Initial Meño Date Initial Exam Date Initial Exam Provider Initial Ultrasound Date Last Menstrual Period Date Ultra Sound Weeks Gestation 0 Eighteen To Twenty Week Meño Update Ultra Sound Date Fundal Height At Umbil Quickening Date Ultra Sound Latest Weeks Gestation Final Meño Confirmed By Final Meño Confirmed Date Final Meño Date Ultra Sound Latest Days Gestation 0 0 Menstrual History Last Menstrual Date Menses Monthly On Bcp Conception Prior Menses Frequency Hcg Plus Date Menarche Onset Age Delivery Information Delivery Date Delivery Type Labor Anesthesia Weeks Gestation Incision Type Labor Labor Length Hrs Delivered By Post Complications Tubal Sterilization Discharge Date Comments 9 Regional-Ep idural [address] Dr[address] Grupo Oswald delivered Discharge Information Feeding Method Contraceptive Method Maternal HG B and HCT Levels
[2024-08-27 14:49] VITALS: BP 125/86; PULSE 74; RESP 20; TEMP 36.8; O2SAT 99; BMI 23.9
--- NOTE | 2024-08-27 14:52 | CRLHL7_ITS ---
For Patients: As a result of the Cures Act, medical imaging exams and procedure reports are released immediately into your electronic medical record. You may view this report before your referring provider. If you have questions, please contact your health care provider. INDICATION: Slammed in door 5th finger TECHNIQUE: Three views right hand FINDINGS/IMPRESSION: Normal alignment. No acute fracture or acute osseous abnormalities are visualized. Dictated by Sarina Bravo MD @ 08/27/2024 3:45:04 PM (Electronically Signed)
--- NOTE | 2024-08-27 16:00 | ED_ITS ---
HPI - General Adult General Date Seen: 08/27/24 Chief complaint: Extremity Pain/Injury, Upper Stated complaint: Dislocatd right pinky Time Seen by Provider: 08/27/24 15:57 History of Present Illness HPI narrative: 39-year-old female presenting to the ER today with an injury to her right hand 5th finger. She was riding her horse today and doing some jumping. When she came to a jump the horse jumped but she was thrown backwards and then as the horse land she came forward to catch herself. She did not fall off the horse but she jammed her right hand against the back of the horses neck and saddle. She injured her right hand 5th digit. No other injury in the accident. She saw and felt a dislocation of the PIP joint. She describes that her pinky finger was angulated toward the ulnar side of her her hand. She then saw and felt and heard her PIP joint snapped back into the alignment as she was trying to take off her horse riding glove. Since then she has had pain and swelling in the 5th finger. No associated numbness. No bleeding or laceration. Related Data Home Medications ?Medication ?Instructions ?Recorded ?Confirmed desogestrel-e.estradiol 0.15 1 tab PO DAILY 11/02/23 11/02/23 mg-0.02 mg(21)/e.estrad 0.01 mg(5) tablet (Viorele (28)) Allergies Allergy/AdvReac Type Severity Reaction Status Date / Time No Known Drug Allergies Allergy Verified 11/02/23 16:46 [facility] Medical History (Updated 08/27/24 @ 16:19 by Ezra Iqbal MD) No significant past medical history Social History Smoking Status: Never smoker Second hand tobacco smoke exposure: No How often do you have a drink containing alcohol: never AUDIT-C Alcohol total score: 0 Non-prescribed substance use: denies use Exam Narrative: Exam Narrative: Constitutional: Appears well-developed and well-nourished. Active. Non-toxic appearing. Polite HENT: Head: Atraumatic. No signs of injury. Nose: No nasal discharge. Mouth/Throat: Mucous membranes are moist. Pharynx is normal. Tonsils symmetric. Uvula midline. Airway patent. Eyes: Conjunctivae normal and EOM are normal. Pupils are equal, round, and reactive to light. Right eye exhibits no discharge. Left eye exhibits no discharge. No icterus. Neck: Normal range of motion. Neck supple. No adenopathy. No stridor. Cardiovascular: Normal rate and regular rhythm. Normal cap refill. Normal rad ial pulse Pulmonary/Chest: Effort normal. No stridor. No respiratory distress Musculoskeletal: Normal except for right hand 5th digit PIP joint. She has no swelling or tenderness of the thumb, index finger, long finger, ring finger. She does have bruising and swelling of the proximal phalanges, PIP joint, middle phalanges of the 5th digit. Limited range of motion at the PIP joint due to pain. She has some 45? of flexion at the MCP joint but is limited by pain apprehension at the PIP when she tries to move her MCP. She has normal flexion extension of the D IP joint. Intact radial and ulnar digital nerve function. Normal ulnar, median, radial nerve function in the hand. Neurological: Alert. Normal strength. No cranial nerve deficit or sensory deficit. Coordination normal. GCS eye subscore is 4. GCS verbal subscore is 5. GCS motor subscore is 6. Skin: Skin is warm. No rash noted. Const: Vital Signs, click to edit/add: Vital Signs - 24 hr 08/27/24 14:49 Temperature 98.2 F Pulse Rate [Right Pulse Oximeter] 74 Respiratory Rate 20 Blood Pressure [Ri ght Upper Arm] 125/86 Pulse Oximetry 99 Oxygen Delivery Me thod Room Air Course Vital Signs Vital signs: Initial Vital Signs Temperature 98.2 F 08/27/24 14:49 Temperature Source Temporal Artery Scan 08/27/24 14:49 Pulse Rate 74 08/27/24 14:49 Respiratory Rate 20 08/27/24 14:49 Blood Pressure 125/86 08/27/24 14:49 Blood Pressure Mean 99 08/27/24 14:49 Blood Pressure Position Sitting 08/27/24 14:49 Pulse Oximetry 99 08/27/24 14:49 Oxygen Delivery Method Room Air 08/27/24 14:49 Vital Signs Temperature 98.2 F 08/27/24 14:49 Pulse Rate 74 08/27/24 14:49 Respiratory Rate 20 08/27/24 14:49 Blood Pressure 125/86 08/27/24 14:49 Pulse Oximetry 99 08/27/24 14:49 Oxygen Delivery Method Room Air 08/27/24 14:49 Temperature 98.2 F 08/27/24 14:49 Pulse Rate 74 08/27/24 14:49 Respiratory Rate 20 08/27/24 14:49 Blood Pressure 125/86 08/27/24 14:49 Pulse Oximetry 99 08/27/24 14:49 Oxygen Delivery Method Room Air 08/27/24 14:49 Medical Decision Making MDM Narrative Medical decision making narrative: Pleasant 39-year-old female presenting to the ER today with her family with concern for a right hand 5th finger injury. She was riding her horse today when she inadvertently forcefully jammed her finger against the horses neck. She saw a visible deformity with a ulnar deviation at the proximal interphalangeal joint. She actually saw and felt and heard the joint pop back into alignment when she was trying to take off her horse back riding glove. She describes a spontaneous reduction of a PIP joint dislocation. Since then she has been having pain and swelling and difficulty with range of motion at the PIP joint. No distal numbness or tingling. No other injuries in the accident. She has no previous hand injury. Splint placement I placed the patient into a little foam splint immobilizing the 5th digit of the right hand. Care was taken to formed the splint to keep the MCP, PIP, DI P joints in neutral position with slight flexion. Splint was comfortable and padded. She was distally neurovascularly intact after splint was placed and secured tape. No signs of undue pressure or neurovascular compromise Imaging Data Xr fingers: Attestation: I have reviewed the pertinent imaging results. Radiologist's impression: FINDINGS/IMPRESSION: Normal alignment. No acute fracture or acute osseous abnormalities are visualized. Discharge Plan Discharge Clinical Impression: Dislocation of finger PIP joint Patient Disposition: Home, Self-Care Condition: Stable Instructions: Finger Dislocation (ED) Additional Instructions: As we discussed, wear the splint and keep it dry until you see Ortho later this week. To manage pain you can use ice for 20 minutes every 3-4 hours. Use Tylenol or ibuprofen if needed. Avoid area activities that require lifting or grabbing with your right hand. Keep your right hand clean and dry. Keep the splint in place to help immobilize the injured joint and ligaments. Please follow-up with the [facility] within 3-5 days for a recheck. Tomorrow morning you can call to schedule your ER follow-up appointment. Call [phone] Prescriptions: No Action desog-e.estradiol/e.estradiol [Viorele (28)] 0.15-0.02 mgx21 /0.01 mg x 5 tablet 1 tab PO DAILY Follow Up/Referrals: Provider,Not a Local [Primary Care Provider] - Stand Alone Forms: [employer] Info Instructions
--- OUTSIDE RECORDS SUMMARY | 2024-08-27 16:23 | XMS_ITS | Clinical Summary ---
Author Organization [employer] [facility] Address [address] [place] [id number] Care Team Providers Care Psychiatric Np Name Role Phone Pcp, No Primary Care [...] on file Legal Sex Female 7:17 AM [employer] Gender Identity Not on file Sexual Orientation Not on file Obstetrics History Para Term AB IAB SAB Ectopic Multiple Livin g Live Births 1 Date Outcome GA Total Labor Labor/2nd/3rd Weight Sex Type Anes PTL Debra A1 A5 Name Clin Last Filed Vital Signs Vital Sign Reading Time Taken Comments Blood Pressure 119/80 07/27/2023 8:01 AM [employer] Pulse 81 07/27/2023 8:01 AM [employer] Temperature 36.6 C (97.8 F) 06/25/2011 8:44 AM [employer] Respiratory Rate 18 04/22/2007 4:51 PM CDT Oxygen Saturation 99% 07/27/2023 8:01 AM [employer] Inhaled Oxygen Concentration - - Weight 71.2 kg (157 lb) 07/27/2023 8:01 AM [employer] Height 172.8 cm (5' 8.03) 01/25/2023 1:42 [...] patient's age to complete this topic Insurance [facility] Advance Directives * Full Code (Latest Code Status on File) Date Activated Date Inactivated Comments 02/21/2006 2:07 PM 02/23/2006 2:20 PM * Full Code Date Activated Date Inactivated Comments 02/21/2006 9:00 AM 02/21/2006 2:07 PM Care Teams Psychiatric Np Relationship Specialty Start Date End Date Pcp, No . PCP - General 08/31/12
--- OUTSIDE RECORDS SUMMARY | 2024-08-27 16:23 | XMS_ITS | Clinical Summary ---
Author Organization [facility] Address [address] [place] [address] Care Team Providers Care Barrel Assembler Name Role Phone None Reported, Pcp Primary Care Provider Unavail able Source Comments Patient records contain information from all sites at [facility]. For routine questions regarding patient records, call [phone] during business hours, M-F 8:00 AM - 5:00 PM Central Time. Record requests for emergency care only can be directed to [phone] at any time.[facility] Allergies No known active allergies Medications [...] patient's age to complete this topic Insurance [facility] Care Teams Barrel Assembler Relationship Specialty Start Date End Date None Reported, Pcp PCP - General Family Medicine 11/08/23
== END 2024-08-27 16:27 | disposition home or self-care (01) ==
LOC: ED 16:20
PROVIDERS: Emergency Provider Emergency Medicine
DX: S63.286A Dislocation of proximal interphalangeal joint of right little finger, initial encounter (principal); W23.0XXA Caught, crushed, jammed, or pinched between moving objects, initial encounter; Y93.52 Activity, horseback riding
CPT/HCPCS: 29130; 73130; 99282; 99283